=== PATIENT | male | born 1960 | race Caucasian/White ===

== ENCOUNTER 2018-12-18 01:04 | Emergency (ER) | payer SELFPAY ==
[~2018-12-18] VITALS: Ht 177.8 cm; Wt 95.3 kg
[2018-12-18 02:25] LABS: *BILIRUBIN,URIN 2+ (NEGATIVE); *BLOOD, URINE NEGATIVE (NEGATIVE); *CLARITY,URINE CLEAR (CLEAR); *COLOR,URINE YELLOW (YELLOW); *KETONES,URINE 4+ (NEGATIVE); LEUKOCYTE ESTERASE ,URINE NEGATIVE (NEGATIVE); NITRITE, URINE NEGATIVE (NEGATIVE); PH,URINE 5.5 (5.0-8.0); UGLUCOSE NEGATIVE (NEGATIVE)
[2018-12-18] MEDS ORDERED: HYDROCODONE/APAP 5-325MG TABLET PO ONE ×2 (02:30→06:15)
[2018-12-18 02:33] LABS: BACTERIA,URINE NONE SEEN /HPF (NONE SEEN); MUCUS,URINE FEW /LPF (0-FEW); RBC,URINE 0-3 /HPF (0-3); SQUAMOUS EPITHELIAL CELL,UR FEW /HPF (NONE SEEN); WBC,URINE 0-3 /HPF (0-3)
[2018-12-18] MEDS ORDERED: HYDROCODONE/APAP 5-325MG TABLET ONE ×2 (02:35→06:21)
[2018-12-18 02:37] LABS: BASOPHILS # (AUTO) 0.1 K/uL (0.0-8.0); BASOPHILS % (AUTO) 0.7 % (0.0-2.0); EOSINOPHILS # (AUTO) 0.1 K/uL (0.0-0.7); EOSINOPHILS % (AUTO) 0.6 % (0.0-7.0); HEMOGLOBIN 13.9 g/dL (12.5-16.3); LYMPHOCYTES # (AUTO) 0.8 K/uL (20.0-40.0); LYMPHOCYTES % (AUTO) 8.1 % (20.5-51.5); MEAN CORPUSCULAR HEMOGLOBIN 28.8 uug (23.8-33.4); MEAN CORPUSCULAR HGB CONC 34 g/dL (32.5-36.3); MEAN CORPUSCULAR VOLUME 85.1 fL (73.0-96.2); MONOCYTES # (AUTO) 0.6 K/uL (2.0-10.0); MONOCYTES % (AUTO) 6.4 % (0.0-11.0); NEUTROPHILS # (AUTO) 7.8 K/uL (1.8-8.9); NEUTROPHILS % (AUTO) 84.2 % (38.5-71.5); PLATELET COUNT (AUTO) 359 K/uL (152-348); RED BLOOD CELL COUNT(AUTO) 4.81 MIL/uL (4.06-5.63); WHITE BLOOD COUNT (AUTO) 9.3 K/uL (3.6-10.2)
--- NOTE | 2018-12-18 02:43 | NUR ---
Sent to x-ray via w/c
[2018-12-18 03:25] LABS: POTASSIUM 4.1 mmol/L (3.5-5.1)
[2018-12-18 03:26] LABS: BILIRUBIN,TOTAL 0.5 mg/dL (0.1-1.0); CREATININE 1.1 mg/dL (0.6-1.3); TOTAL PROTEIN, SERUM 8.4 g/dL (6.4-8.2)
[2018-12-18 03:27] LABS: BILIRUBIN,DIRECT 0.1 mg/dL (0.0-0.2)
[2018-12-18] MEDS ORDERED: IV NORMAL SALINE 1000 ML BAG IV ONE (03:45)
[2018-12-18] MEDS ORDERED: IV NORMAL SALINE 250 ML IV ONE (04:03)
[2018-12-18] MEDS ORDERED: IOHEXOL 300MG/ML 100 ML INFUS..BTL ONE (04:03)
[2018-12-18] MEDS ORDERED: SWABABLE VALVE TRANSFER SET EA MC ONE (04:03)
--- NOTE | 2018-12-18 06:00 | NUR ---
[facility] CALLED FOR CT RESULTS, SONJA STATED SHE WILL HAVE IT READ
--- NOTE | 2018-12-18 06:04 | NUR ---
PATIENT MOVED TO 5A
--- NOTE | 2018-12-18 06:20 | NUR ---
2ND CALL BY DR. CARDOZA PLACED TO [facility], STILL AWAITING RESULTS
--- NOTE | 2018-12-18 06:54 | NUR ---
Changed to Rm 5 c/o 2 out 10 flank pain s/l to right forearm intact. CT ABD with contrast pending.
--- NOTE | 2018-12-18 08:06 | NUR ---
Patient discharged to home in stable conditon. Written and verbal after care instructions given. Patient verbalizes understanding of instructions.pt walks in steady gait. pt dneies any pain or nausea at this point pt understandss the importance of following up. a copy of all the studies provided for pt and aged or disabled carer.
[2018-12-18 08:08] VITALS: BP 121/88
== END 2018-12-18 08:10 | disposition home or self-care (01) ==
LOC: ER 01:09
DX: M54.9 Dorsalgia, unspecified (principal); R19.00 Intra-abdominal and pelvic swelling, mass and lump, unspecified site; R11.2 Nausea with vomiting, unspecified; Z90.49 Acquired absence of other specified parts of digestive tract
CPT/HCPCS: 36415; 74176; 74177; 80048; 80076; 81000; 81001; 83690; 84484; 85025; 93005; 96360; 96361; 99284; Q9967; 70030-TC; A4663; J7050